=== PATIENT | male | born 1955 | race Caucasian/White ===

== ENCOUNTER 2017-05-13 19:51 | Emergency (ER) | payer BC ==
[~2017-05-13] VITALS: Ht 180.3 cm; Wt 80.0 kg
[2017-05-13 19:55] VITALS: TEMP 36.6; Ht 180.3 cm; Wt 80.0 kg
[2017-05-13] MEDS ORDERED: ASPI81TA28 PO (20:48)
[2017-05-13] MEDS ORDERED: ATOR-54 PO (20:48)
[2017-05-13] MEDS ORDERED: WLLSR/150 PO (20:48)
[2017-05-13] MEDS ORDERED: LSN/10125 PO (20:48)
[2017-05-13 21:48] VITALS: BP 144/79; PULSE 74; O2SAT 99
--- NOTE | 2017-05-14 02:26 | EMERGENCY ROOM VISIT NOTE ---
History Report prepared by Esteribfausto: Karina Leon Under the Supervision of: Dr. Rainer Murray M.D. First contact with patient: 20:14 Chief Complaint: FOOD BOLUS Stated Complaint: FOOD STUCK IN THROAT Nursing Triage Summary: patient reports eating meat that got stuck,patient reports vomiting in triage and states "I think it might of cleared when I vomited,it did the last time I had this" History of Present Illness The patient is a 61 year old male who presents to the Emergency Room with complaints of a food bolus. He was brought to the ED via EMS. 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 His sons called EMS and the patient states he vomited when he got to the ED, which seems to have helped clear some of the bolus. He has been able to take small sips of water after vomiting and states the liquid seems to be going down, but he still has a sensation of something being stuck in his throat and rates his discomfort as a 3/10. The patient reports he did experience a food bolus several years ago. Pt denies LOC, headache, fevers, chills, diaphoresis, visual changes, neck pain, chest pain, breathing difficulties, nausea, vomiting , abdominal pain, back pain, melena, hematochezia, urinary symptoms, numbness, weakness, lymphadenopathy, rash, or other complaints. 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 A total of ten systems were reviewed and were otherwise negative. Past Medical & Surgical Medical Problems: (1) Hyperlipidemia (2) Hypertension Social History Smoking Status: Current Every Day Smoker Alcohol Use: occasionally Drug Use: none Marital Status: Housing Status: lives with family Occupation Status: employed Current/Historical Medications Scheduled Aspirin (Aspirin Ec), 81 MG PO DAILY Atorvastatin (Lipitor), 20 MG PO QPM Bupropion Hcl (Wellbutrin Sr), 150 MG PO BID Hctz/Lisinopril (Lisinopril/Hctz 10/12.5 Mg), 1 TAB PO DAILY Allergies Coded Allergies: No Known Allergies (Unverified , 05/13/17) Physical Exam Vital Signs Date Time Temp Pulse Resp B/P (MAP) Pulse Ox O2 Delivery O2 Flow Rate FiO2 05/13/17 21:48 74 18 144/79 99 05/13/17 19:55 36.6 77 20 174/84 96 Room Air Physical Exam GENERAL: Awake, alert, well-appearing, in no distress HENT: Normocephalic, atraumatic. Oropharynx unremarkable. EYES: Normal conjunctiva. Sclera non-icteric. NECK: Supple. No nuchal rigidity. FROM. No JVD. RESPIRATORY: Clear to auscultation. CARDIAC: Regular rate, normal rhythm. Extremities warm and well perfused. Pulses equal. ABDOMEN: Soft, non-distended. No tenderness to palpation. No rebound or guarding. No masses. RECTAL: Deferred. MUSCULOSKELETAL: Chest examination reveals no tenderness. The back is symmetrical on inspection without obvious abnormality. There is no CVA tenderness to palpation. No joint edema. LOWER EXTREMITIES: Calves are equal size bilaterally and non-tender. No edema. No discoloration. NEURO: Normal sensorium. No sensory or motor deficits noted. SKIN: No rash or jaundice noted. Medical Decision & Procedures ED Course 2019: The patient was evaluated in room B10. A complete history and physical exam was performed. 2129: I reevaluated the patient. His symptoms have completely resolved. I discussed his results and discharge instructions and he verbalized complete understanding and agreement. Medical Decision Medication Reconciliation: I attest that I have personally reviewed the patient' s current medication list Blood pressure screening: Patient was found to have a slightly elevated blood pressure and was referred to their primary doctor for recheck and further treatment. Triage Nursing notes reviewed. The patient's presentation and history were concerning for possible food impaction. Differential includes esophageal food impaction, esophageal stricture, esophageal spasm, as well as others. Patient was evaluated. He had symptoms consistent with an esophageal food impaction. He noted vomiting just after arrival here and having the sensation that his problem cleared. The patient was tolerating his saliva. He took several sips of water and did well with this. He was given a carbonated beverage and observed. He had complete resolution of symptoms. The patient had no recurrence of discomfort or vomiting. He was able to swallow without difficulty. I suspect that he had an esophageal food impaction that has passed. He has had the need for esophageal dilation in the past. He has not seen a local [facility]. The patient was given information for [facility]. He will need to follow-up. If he developed any worsening problems he will come back to the emergency department for reevaluation. By the evaluation outlined above other emergent etiologies such as those listed in the differential, as well as others, were deemed relatively unlikely. The patient was educated about the findings as listed above. All questions were answered and the patient was pleased with the treatment. Return instructions were outlined and the patient was discharged in stable condition. The patient was referred to gastroenterology and his PCP for follow-up for a recheck of the current condition Impression Primary Impression: Food impaction of esophagus Scribe Attestation The scribe's documentation has been prepared under my direction and personally reviewed by me in its entirety. I confirm that the note above accurately reflects all work, treatment, procedures, and medical decision making performed by me. Departure Information Dispostion Home / Self-Care Referrals No Doctor, Assigned (PCP) Patient Instructions My [facility] Additional Instructions Rest and drink plenty of fluids as tolerated. Continue current medications. Avoid strenuous activities and anything that worsens your pain. Resume normal activities once your symptoms resolve. Return to the ER immediately for worsening or persistent chest pain, abdominal pain, vomiting, fevers, chest pains, difficulty breathing, worsening of your condition, or as needed. Follow up with your primary physician for a recheck of your current condition. Follow-up with gastroenterology as discussed. The number is listed below under Dr. hollingsworth.
== END 2017-05-13 21:52 | disposition home or self-care (01) ==
LOC: C.EDB 19:56
DX: T18.128A Food in esophagus causing other injury, initial encounter (principal); X58.XXXA Exposure to other specified factors, initial encounter; Y92.89 Other specified places as the place of occurrence of the external cause; E78.5 Hyperlipidemia, unspecified; I10 Essential (primary) hypertension; F17.210 Nicotine dependence, cigarettes, uncomplicated; Z79.82 Long term (current) use of aspirin; Z79.899 Other long term (current) drug therapy

== ENCOUNTER 2020-09-01 08:40 | Inpatient (IN) ==
[2020-09-01] MEDS ORDERED: MECLIZINE HCL 25 MG TAB PO STA (08:56)
[2020-09-01] MEDS ORDERED: ONDANSETRON INJ 2 MG/ML 2 ML VIAL IV STA (08:56)
[2020-09-01] MEDS ORDERED: SODIUM CHLORIDE 0.9% 1000ML 1,000 ML IV ONE (08:58)
[2020-09-01] MEDS ORDERED: OPTIRAY 320 125ml IV ONE (09:00)
[2020-09-01] MEDS ORDERED: LABETALOL HCL IV 5 MG/ML 20ML IV ONE ×2 (09:05→09:30)
[2020-09-01] MEDS ORDERED: MAGNESIUM SULFATE 1GM / D5W BAG IV ONE (09:22)
[2020-09-01] MEDS ORDERED: MAGNESIUM SULFATE / D5W 1 GM/100 ML BAG IV STA ×2 (09:24→09:55)
--- NOTE | 2020-09-01 09:34 | CT Scan Report ---
UNENHANCED CT OF THE BRAIN; CT ANGIOGRAM OF THE BRAIN; CT ANGIOGRAM OF THE NECK CLINICAL HISTORY: Strokelike symptoms. COMPARISON STUDY: No priors. TECHNIQUE: Unenhanced axial CT scan of the brain is performed. Subsequently, following the IV adminis tration of 120 of Opt[address]ay 320, CT angiogram of the head and neck was performed from the aortic arch t o the vertex. Images are reviewed in the axial, sagittal, and coronal planes. 3-D MIPS images are cre ated and assessed. IV contrast was administered without complication. All measurements were calculate d based on NASCET criteria. A dose lowering technique was utilized adhering to the principles of ALA RA. CT DOSE: 1238.98 mGy.cm FINDINGS: Brain parenchyma: There is age-related involutional change noting mild subcortical and periventricula r microangiopathic disease. There is no hemorrhage, mass effect, or evidence of acute territorial isc hemia by CT criteria. There is no evidence of enhancing mass lesion on the angiogram phase images. Th e ventricles, sulci, and cisterns are prominent secondary to involutional change. Dc-white matter d ifferentiation is preserved. Mineralization is noted in the basal ganglia. No extra-axial fluid colle ction is seen. Thoracic aorta: Visualized portions of the thoracic aorta are normal in caliber. The aortic arch demo nstrates bovine variant anatomy. Right carotid arterial system: The right common carotid artery is widely patent, as are the right int ernal and external carotid arteries. Left carotid arterial system: The left common carotid artery is widely patent, as are the left administration intern al and external carotid arteries. Calcified plaque is noted in the carotid bulb. There is tortuosity of the distal internal carotid artery. Vertebral arteries: The vertebral arteries are widely patent and codominant. Subclavian arteries: Widely patent bilaterally. Intracranial vasculature: There is atherosclerotic calcification of the cavernous carotid arteries. T here is origin of the left posterior cerebral artery. A small posterior to indicating artery is seen on the right. The internal carotid arteries are patent at the skull base, as are the anterior a nd middle cerebral arteries bilaterally. The vertebrobasilar system and posterior cerebral arteries a re widely patent. The vertebral arteries are codominant. There is no aneurysm, high-grade stenosis, o r focal vessel cut off seen throughout the intracranial circulation. Jugular veins: Patent bilaterally. Dural sinuses: Patent. Lung apices: Partially visualized upper lobe lung parenchyma appears clear. Soft tissues: The visualized pharyngeal soft tissues are normal in appearance noting angiographic pha se technique. The oropharyngeal airway appears widely patent. The salivary and thyroid glands are nor mal in appearance. No cervical lymphadenopathy is seen. Skeletal structures: The calvarium appears intact. The cervical spine is within normal limits. No lyt ic or blastic lesion is seen. Orbits: The bony orbits are intact. Orbital contents are normal as imaged. Sinuses and mastoids: There is mild mucosal thickening in the right frontal sinus. A 10 mm retention cyst is seen in the right maxillary sinus. Trace mucosal thickening is noted in the left maxillary si nus. The mastoid air cells are well pneumatized. IMPRESSION: 1. There is no hemorrhage, mass effect, or evidence of acute territorial ischemia by CT criteria. 2. Unremarkable CT angiogram of the brain. 3. Unremarkable CT angiogram of the neck. ACT 112: Negative or not required by law. Electronically signed by: Darren Tejada M.D. 09/01/2020 9:33 AM
[2020-09-01 09:44] LABS: Basophils # (auto) 0.01 K/uL (0-0.2); Basophils % (auto) 0.1 %; Eosinophils # (auto) 0.13 K/uL (0-0.5); Eosinophils % (auto) 1.3 %; Hematocrit (blood only) 43.9 % (42-52); Hemoglobin 14.7 g/dL (14.0-18.0); Immature Granulocytes # (auto) 0.03 K/uL (0.00-0.02); Immature Granulocytes % (auto) 0.3 %; Lymphocytes % (auto) 9.9 %; Mean Corpuscular Hgb Conc 33.5 g/dL (32-36); Mean Corpuscular Volume 92.6 fL (80-100); Mean Platelet Volume 9.6 fL (7.4-10.4); Monocytes # (auto) 0.51 K/uL (0.11-0.59); Neutrophils # (auto) 8.46 K/uL (1.4-6.5); Neutrophils % (auto) 83.4 %; Platelet Count 243 K/uL (130-400); Red Blood Count 4.74 M/uL (4.7-6.1); White Blood Count 10.14 K/uL (4.8-10.8)
[2020-09-01 09:48] LABS: iSTAT Creatinine 0.9 mg/dl (0.6-1.3); iSTAT Ionized Calcium 1.17 mmol/l (1.12-1.32)
[2020-09-01] MEDS ORDERED: ASPIRIN CHEW 324 MG PO STA (09:55)
[2020-09-01 10:02] LABS: Alanine Aminotransferase 38 U/L (12-78); Albumin Level 3.3 gm/dl (3.4-5.0); Aspartate Aminotransferase 16 U/L (15-37); BUN Creatinine Ratio 12.2 (10-20); Blood Urea Nitrogen 12 mg/dl (7-18); Calcium 8.3 mg/dl (8.5-10.1); Carbon Dioxide 27 mmol/L (21-32); Chloride 107 mmol/L (98-107); Creatinine Clr Calc Pharmacy 74.6 ml/min; Est GFR (Non-African American) 76.8; Glucose 126 mg/dl (70-99); Magnesium 2.1 mg/dl (1.8-2.4); Potassium 3.9 mmol/L (3.5-5.1); Sodium 138 mmol/L (136-145)
[2020-09-01 10:05] LABS: Partial Thromboplastin Ratio 0.9; Partial Thromboplastin Time 24.4 Seconds (21.0-31.0); Prothrombin Time 10.4 Seconds (9.0-12.0)
[2020-09-01 10:07] LABS: Alkaline Phosphatase 124 U/L (45-117); Bilirubin,Total 0.3 mg/dl (0.2-1); Creatine Kinase MB 1.6 ng/ml (0.5-3.6); Globulin 3.4 gm/dl (2.5-4.0); Total Protein 6.7 gm/dl (6.4-8.2); Troponin I < 0.015 ng/ml (0-0.045)
--- NOTE | 2020-09-01 10:07 | XRay Report ---
SINGLE VIEW CHEST CLINICAL HISTORY: Dizziness. FINDINGS: An AP, portable, upright chest radiograph is obtained. No prior studies are available for c omparison at the time of dictation. The heart is top normal for projection. The pulmonary vasculatur e is noncongested. The lungs and pleural spaces are clear. No pneumothorax is seen. The bony thorax i s grossly intact. IMPRESSION: No active disease in the chest. ACT 112: Negative or not required by law. Electronically signed by: Darren Tejada M.D. 09/01/2020 10:05 AM
--- NOTE | 2020-09-01 10:44 | Magnetic Resonance Report ---
MR brain wo con HISTORY: 64 years-old Male Pt c/o severe dizziness acute dizziness. COMPARISON: Head CT, CTA head neck of same day TECHNIQUE: Multiplanar multisequence MRI of the brain was obtained without the use of IV contrast. FINDINGS: No restricted diffusion to suggest acute or subacute infarct. Midline structures including the corpus callosum, brainstem, optic chiasm, pituitary and pineal glands appear unremarkable the sagittal T1 s eries. There is no cerebellar tonsillar herniation. Degenerative changes of the imaged cervical spine . Mild age-related involutional changes. Mild to moderate patchy T2/FLAIR hyperintensities throughout the white matter of the cerebral hemispheres. No acute intracranial hemorrhage, midline shift, abnor mal extra axial collection, hydrocephalus or intracranial mass. The cerebral venous sinuses and major arterial flow voids at the level of the skull base appear patent. Mild polypoid mucosal thickening o f the right maxillary sinus. Skull, orbits and soft tissues are unremarkable. IMPRESSION: 1. No acute intracranial abnormality, specifically there is no evidence of acute or subacute infarct. 2. Age-related involutional changes with mild to moderate chronic microvascular ischemic disease. ACT 112: Negative or not required by law. The above report was generated using voice recognition software. It may contain grammatical, syntax o r spelling errors. Electronically signed by: Rodrigo Valdez M.D. 09/01/2020 10:43 AM
--- NOTE | 2020-09-01 11:33 | Electrocardiogram Report ---
Test Reason : Blood Pressure : / mmHG Vent. Rate : 064 BPM Atrial Rate : 064 BPM P-R Int : 160 ms QRS Dur : 104 ms QT Int : 430 ms P-R-T Axes : 034 055 053 degrees QTc Int : 443 ms Normal sinus rhythm Normal ECG No previous ECGs available Confirmed by Km Chaidez ([id number]) on 09/01/2020 11:33:40 AM Referred By: REFERRED SELF Confirmed By:Km Chaidez
[2020-09-01] MEDS: niCARdipine 25 MG in SODIUM CHLORIDE 0.9% 240 ML IV SCH ×2 (12:00→18:02)
[2020-09-01] MEDS ORDERED: POLYETHYLENE (MIRALAX) 17 GM PACK PO PRN (12:04)
[2020-09-01] MEDS ORDERED: ACETAMINOPHEN 325 MG TAB PO PRN (12:04)
--- NOTE | 2020-09-01 12:10 | History & Physical Report ---
Date of Service September 01, 2020 Assessment & Plan (1) Hypertension: Hypertensive urgency history of hypertension currently, blood pressure BP quite elevated, patient symptomatic, dizzy Received labetalol 10 mg IV in the ED without much improvement Patient started on nicardipine drip after blood pressure 197/100 CT head negative, CT a head and neck unremarkable, MRI does not show any acute intracranial abnormality, specifically there is no evidence of acute or subacute infarct. Age-related mild to moderate chronic microvascular ischemic disease. In the past patient was on lisinopril/HCTZ, , patient stopped medication on his own, then followed up with his PCP and his blood pressure was at goal therefore blood pressure medication was not restarted, currently not on any blood pressure medications Plan to start on his prior medication, oral lisinopril/HCTZ Currently patient is on nicardipine drip, and will need to be monitored in ICU Patient received aspirin 324 mg in the ED, will continue aspirin 81 mg daily (pt was previously on aspirin, says that he stopped it sometime ago) Echocardiogram ordered, patient should be monitored on telemetry in case there is other cause for his dizziness Patient also reported urinary frequency, this could be age-related BPH, but there is also possibility of UTI Will obtain UA urine culture Denies any fevers or chills, WBC not elevated (2) Hyperlipidemia: Continue home lipitor (3) Depression: Continue home Wellbutrin (4) Tobacco use: Counseled about tobacco use cessation Currently smokes about 1 small cigar a day, he also reports daily marijuana smoking Nicotine patch ordered DVT ppx: SCDs Code: Full History of Present Illness Chief Complaint: Dizziness Primary Care Provider: Jesus Neil MD Patient is a 64-year-old male, with history of hypertension, hyperlipidemia, erectile dysfunction, depression, who presents today due to dizziness. Patient states that he was at work, moving boxes which were quite heavy, working currently at [employer], and became very dizzy. He went to men's room, and felt very nauseous, dry heaving. He then presented to emergency room for further evaluation. Emergency room EKG showed normal sinus rhythm. He also received 10 mg of labetalol IV. He also received aspirin 324 mg. Chest x-ray was unremarkable, CT head was obtained and was negative. CTA head and neck unremarkable. MRI was also obtained to rule out stroke or any other intracranial abnormality, and did not show any acute intracranial abnormality, specifically no evidence of acute or subacute infarct. It did show age-related mild to moderate chronic microvascular ischemic disease. Blood pressure continued to be elevated, 197/100, patient was started on nicardipine drip in the ED. Pt otherwise denies any fevers, chills, chest pain, shortness of breath, currently denies any abdominal pain as he does not feel nauseous anymore. He still feels dizzy though. Denies any sick contacts, any new rash or swelling. Pt denies any diarrhea, however he states that his urination is more frequent. He smokes small cigars a day, and only rarely drinks alcohol. He reports marijuana use/smoking daily. In the past, he was on lisinopril/HCTZ . He then stopped his medications and went to see his primary care doctor. At that time his blood pressure was at goal and therefore it was decided not to start him on any blood pressure medications. Allergies Allergy/AdvReac Type Severity Reaction Status Date / Time No Known Allergies Allergy Unverified 09/01/20 10:16 Home Medications Home Medications Medication Instructions Recorded Confirmed Type atorvastatin 20 mg PO DAILY 09/01/20 09/01/20 History bupropion HCl 150 mg PO BID 09/01/20 09/01/20 History melatonin 3 mg PO HS PRN 09/01/20 09/01/20 History Past Med/Surg History Medical History Depression Erectile dysfunction Normal colonoscopy Tobacco use Family History (Updated 09/01/20 @ 12:16 by Bobby Zamora MD) Brother Diabetes Mother Cancer cervical Father Heart disease hx of [place] Social History Smoking Status: Current some day smoker Tobacco Type: Cigars Feels Safe at Home: Yes Review of Systems Review of Systems: All systems reviewed & are unremarkable except as noted in HPI & below Constitutional: no fever and no chills Eyes: no problem reported Ear, Nose, Mouth, Throat: no problem reported Respiratory: no cough and no dyspnea Cardiovascular: no chest pain, no palpitations and no edema Gastrointestinal: + nausea (now resolved) and + vomiting (now resolved); no abdominal pain Genitourinary: + urinary urgency Musculoskeletal: no problem reported Integumentary: no problem reported Neurologic: + dizziness Psychiatric: no problem reported Endocrine: no problem reported Hematologic / Lymphatic: no problem reported Allergy / Immunological: no problem reported Physical Exam Physical Exam: Elderly male, lying in bed, in no acute distress Constitutional: WD/WN, vitals as above Eyes: PERRL, conjunctivae normal, anicteric sclerae EOM intact bilaterally ENMT: external ear and nose normal, oropharynx normal Neck: trachea midline, no thyromegaly Respiratory: normal respiratory effort, lungs clear to auscultation Auscultation: no crackles, no rhonchi and no wheezes Cardiovascular: RRR, no murmur, no edema Chest (Breasts): Chest: normal inspection of chest Gastrointestinal (Abdomen): Inspection/Auscultation: abdomen normal to inspection and normal bowel sounds; abdomen not distended Percussion/Palpation: abdomen soft; abdomen nontender, no guarding and abdomen not rigid Musculoskeletal: no cyanosis or clubbing, extremities motor strength 5/5 Head/Neck/Chest: normocephalic and head atraumatic Skin: no rashes, warm and dry Neurologic: PERRL, EOMI, accommodation nl, no face palsy, no dysarthria moves all extremities Speech / Cognition: normal speech Motor/Sensory: no tremor Psychiatric: A+Ox3, euthymic affect Speech: normal rate/rhythm/volume of speech Genitourinary: no CVA tenderness Lymphatic: no lymphadenopathy Results & Data Results & Data ([facility]) Vital Signs (Past 12 Hours) Vital Signs Temp Pulse Resp BP Pulse Ox 09/01/20 12:00 63 13 09/01/20 11:58 67 13 159/111 H 09/01/20 11:45 61 17 09/01/20 11:30 65 14 09/01/20 11:15 65 23 09/01/20 11:06 63 14 09/01/20 11:05 64 14 197/101 H 99 09/01/20 09:50 60 189/100 H 99 09/01/20 09:45 62 178/97 H 99 09/01/20 09:40 66 09/01/20 09:35 61 185/98 H 99 09/01/20 09:31 60 174/91 H 100 09/01/20 09:30 62 98 09/01/20 09:24 59 L 189/88 H 96 09/01/20 09:20 62 98 09/01/20 08:58 98 09/01/20 08:40 36.5 C 93 H 18 187/104 H 95 Laboratory Results 09/01/20 09/01/20 09/01/20 Range/Units 09:37 09:32 09:32 WBC (4.8-10.8) K/uL RBC (4.7-6.1) M/uL Hgb (14.0-18.0) g/dL POC Hgb 15.0 (14.0-18.0) g/dl Hct (42-52) % POC Hct 44 (42-52) % MCV (80-100) fL MCH (25-34) pg MCHC (32-36) g/dL RDW Std Deviation (36.4-46.3) fL RDW Coeff of Christopher (11.5-14.5) % Plt Count (130-400) K/uL MPV (7.4-10.4) fL Immature Gran % (Auto) % Neut % (Auto) % Lymph % (Auto) % Huntington % (Auto) % Eos % (Auto) % Baso % (Auto) % Neut # (Auto) (1.4-6.5) K/uL Lymph # (Auto) (1.2-3.4) K/uL Huntington # (Auto) (0.11-0.59) K/uL Eos # (Auto) (0-0.5) K/uL Baso # (Auto) (0-0.2) K/uL Immature Gran # (Auto) (0.00-0.02) K/uL PT 10.4 (9.0-12.0) Seconds INR 1.0 (0.9-1.1) APTT 24.4 (21.0-31.0) Seconds PTT Ratio 0.9 POC Sodium 139 (135-144) mmol/L Sodium 138 (136-145) mmol/L POC Potassium 4.0 (3.3-5.0) mmol/L Potassium 3.9 (3.5-5.1) mmol/L POC Chloride 103 (101-112) mmol/L Chloride 107 (98-107) mmol/L Carbon Dioxide 27 (21-32) mmol/L POC Total CO2 25 (24-31) mmol/L Anion Gap 4.0 (3-11) POC Anion Gap 16.0 (16-25) mmol/L POC BUN 13 (7-18) mg/dl BUN 12 (7-18) mg/dl Creatinine 1.02 (0.6-1.4) mg/dl POC Creatinine 0.9 (0.6-1.3) mg/dl Est Cr Clr Drug Dosing 74.6 ml/min Est GFR ( Amer) 89.0 Est GFR (Non-Af Amer) 76.8 BUN/Creatinine Ratio 12.2 (10-20) Glucose 126 H (70-99) mg/dl POC Glucose (70-99) mg/dl POC Glucose (other) 124 H (70-99) mg/dl Calcium 8.3 L (8.5-10.1) mg/dl POC Ioniz Calcium Brandon 1.17 (1.12-1.32) mmol/l Magnesium 2.1 (1.8-2.4) mg/dl Total Bilirubin 0.3 (0.2-1) mg/dl AST 16 (15-37) U/L ALT 38 (12-78) U/L Alkaline Phosphatase 124 H (45-117) U/L CK-MB (CK-2) 1.6 (0.5-3.6) ng/ml Troponin I < 0.015 (0-0.045) ng/ml Total Protein 6.7 (6.4-8.2) gm/dl Albumin 3.3 L (3.4-5.0) gm/dl Globulin 3.4 (2.5-4.0) gm/dl Albumin/Globulin Ratio 1.0 (0.9-2) 09/01/20 09/01/20 Range/Units 09:32 09:13 WBC 10.14 (4.8-10.8) K/uL RBC 4.74 (4.7-6.1) M/uL Hgb 14.7 (14.0-18.0) g/dL POC Hgb (14.0-18.0) g/dl Hct 43.9 (42-52) % POC Hct (42-52) % MCV 92.6 (80-100) fL MCH 31.0 (25-34) pg MCHC 33.5 (32-36) g/dL RDW Std Deviation 44.0 (36.4-46.3) fL RDW Coeff of Christopher 13.0 (11.5-14.5) % Plt Count 243 (130-400) K/uL MPV 9.6 (7.4-10.4) fL Immature Gran % (Auto) 0.3 % Neut % (Auto) 83.4 % Lymph % (Auto) 9.9 % Huntington % (Auto) 5.0 % Eos % (Auto) 1.3 % Baso % (Auto) 0.1 % Neut # (Auto) 8.46 H (1.4-6.5) K/uL Lymph # (Auto) 1.00 L (1.2-3.4) K/uL Huntington # (Auto) 0.51 (0.11-0.59) K/uL Eos # (Auto) 0.13 (0-0.5) K/uL Baso # (Auto) 0.01 (0-0.2) K/uL Immature Gran # (Auto) 0.03 H (0.00-0.02) K/uL PT (9.0-12.0) Seconds INR (0.9-1.1) APTT (21.0-31.0) Seconds PTT Ratio POC Sodium (135-144) mmol/L Sodium (136-145) mmol/L POC Potassium (3.3-5.0) mmol/L Potassium (3.5-5.1) mmol/L POC Chloride (101-112) mmol/L Chloride (98-107) mmol/L Carbon Dioxide (21-32) mmol/L POC Total CO2 (24-31) mmol/L Anion Gap (3-11) POC Anion Gap (16-25) mmol/L POC BUN (7-18) mg/dl BUN (7-18) mg/dl Creatinine (0.6-1.4) mg/dl POC Creatinine (0.6-1.3) mg/dl Est Cr Clr Drug Dosing ml/min Est GFR ( Amer) Est GFR (Non-Af Amer) BUN/Creatinine Ratio (10-20) Glucose (70-99) mg/dl POC Glucose 143 H (70-99) mg/dl POC Glucose (other) (70-99) mg/dl Calcium (8.5-10.1) mg/dl POC Ioniz Calcium Brandon (1.12-1.32) mmol/l Magnesium (1.8-2.4) mg/dl Total Bilirubin (0.2-1) mg/dl AST (15-37) U/L ALT (12-78) U/L Alkaline Phosphatase (45-117) U/L CK-MB (CK-2) (0.5-3.6) ng/ml Troponin I (0-0.045) ng/ml Total Protein (6.4-8.2) gm/dl Albumin (3.4-5.0) gm/dl Globulin (2.5-4.0) gm/dl Albumin/Globulin Ratio (0.9-2) Medications Administered Current Inpatient Medications Acetaminophen (Acetaminophen 325 Mg Tab) 650 mg PO Q4H PRN PRN Reason: Pain or Fever Stop: 10/01/20 12:03 Nicardipine HCl 25 mg/ Sodium (Chloride) 250 mls @ 50 mls/hr IV .Q5H KEITH; Protocol Stop: 10/01/20 11:14 Polyethylene Glycol (Polyethylene (Miralax) 17 Gm Pack) 17 gm PO DAILY PRN PRN Reason: Constipation Stop: 10/01/20 12:03 Code Status & VTE Plan VTE Prophylaxis Plan VTE Prophylaxis will be ordered: Yes
[2020-09-01] MEDS ORDERED: LISINOPRIL/HCTZ 10/12.5MG TAB PO SCH (12:30)
[2020-09-01 13:05] LABS: Appearance Urine Clear (Clear); Bilirubin Urine Negative (Negative); Blood Urine Negative (Negative); Color Urine Yellow; Glucose Urine UA Negative (Negative); Ketones Urine Negative (Negative); Leukocyte Esterase Urine Negative (Negative); Nitrite Urine Negative (Negative); Protein Urine Negative (Negative); Specific Gravity Urine 1.018 (1.000-1.030); Urobilinogen Urine Negative (Negative); pH Urine 7.5 (4.5-7.5)
--- NOTE | 2020-09-01 15:18 | Critical Care Consultation ---
Date of Consultation September 01, 2020 Assessment & Plan (1) Hypertensive urgency: Patient was on a minimal dose of nicardipine drip. We have weaned the nicardipine drip off. He received 10 mg of lisinopril and 12.5 mg of hydrochlorothiazide. His blood pressure is currently 146/81. He is asymptomatic at present. He had an MRI of his brain which demonstrated no acute intracranial abnormality. Age-related mild to moderate chronic microvascular ischemic disease noted. The CT of the head and neck were unremarkable. Chest x-ray with no significant findings. Laboratory data was unremarkable. Urinalysis with no abnormalities. Glucose was 124. Hypertension and dizziness may be related to Mnire's disease. He also noted that his symptoms began possibly roughly 3 months ago around the time he started bupropion. No significant neurological abnormalities noted on exam or on imaging. He may need a cardiac work-up as an outpatient. We will continue to monitor in the ICU for today. Downgrade likely tomorrow. (2) Tinnitus: (3) Tobacco use: (4) Dizziness: History of Present Illness Reason for Consultation: Hypertensive urgency Requesting Physician: Hospitalist service Attending Physician: Bobby Zamora MD History of Present Illness 64-year-old male with a past medical history of tobacco abuse, marijuana abuse, hypertension and depression who presents to the hospital due to dizziness earlier today. Patient works at the [employer] and notes that he was lifting heavy boxes and subsequently felt very dizzy and threw up several times. He actually threw up red contents and then recalled that he ate strawberries for breakfast. He denies any further nausea. He does endorse chronic tinnitus. He notes that he was previously on blood pressure medications but has not taken anything for very long period of time. He does notice intermittent dizziness. The only new medication that he was on his bupropion 150 mg twice daily. He notes that he started this medication roughly 3 months ago. He feels that his symptoms may also have started around that same time. He denies any chest pain. He did have a cough roughly 2 days ago, but this resolved. He denies any fevers or chills. He does smoke a cigar occasionally. He notes that he smoked cigarettes for 40 years and quit roughly 2 to 3 years ago. He smokes marijuana daily at night. He has been doing this since age of 17. 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 He grew up in [place] and moved to [place]. Allergies Allergy/AdvReac Type Severity Reaction Status Date / Time No Known Allergies Allergy Unverified 09/01/20 10:16 Home Medications Home Medications Medication Instructions Recorded Confirmed Type atorvastatin 20 mg PO DAILY 09/01/20 09/01/20 History bupropion HCl 150 mg PO BID 09/01/20 09/01/20 History melatonin 3 mg PO HS PRN 09/01/20 09/01/20 History Patient History Medical History Depression Erectile dysfunction Normal colonoscopy Tobacco use Family History Brother Diabetes Mother Cancer cervical Father Heart disease hx of CA Social History Smoking Status: Current some day smoker Tobacco Type: Cigars Feels Safe at Home: Yes Review of Systems Review of Systems: All systems reviewed & are unremarkable except as noted in HPI & below Physical Exam Constitutional: WD/WN, vitals as above Eyes: PERRL, conjunctivae normal, anicteric sclerae ENMT: external ear and nose normal, oropharynx normal Neck: normal visual inspection Respiratory: normal respiratory effort, lungs clear to auscultation Cardiovascular: RRR, no murmur, no edema Gastrointestinal (Abdomen): normal bowel sounds, soft, nontender, no hepatosplenomegaly Musculoskeletal: no cyanosis or clubbing, extremities motor strength 5/5 Skin: no rashes, warm and dry Neurologic: PERRL, EOMI, accommodation nl, no face palsy, no dysarthria Psychiatric: A+Ox3, euthymic affect Results & Data Results & Data ([facility]) Vital Signs (Past 12 Hours) Vital Signs Temp Pulse Resp BP Pulse Ox 09/01/20 15:00 71 22 98 09/01/20 14:45 65 23 98 09/01/20 14:36 67 21 146/81 H 98 09/01/20 14:21 67 15 162/94 H 100 09/01/20 14:14 98.1 F 09/01/20 14:06 71 24 153/84 H 99 09/01/20 13:51 68 14 145/69 H 99 09/01/20 13:33 16 156/76 H 99 09/01/20 13:00 72 16 136/75 97 09/01/20 12:58 72 20 133/79 99 09/01/20 12:50 76 18 142/86 H 95 09/01/20 12:30 83 15 135/92 95 09/01/20 12:15 72 18 146/76 H 95 09/01/20 12:01 63 15 185/95 H 95 09/01/20 12:00 63 13 09/01/20 11:58 67 13 159/111 H 09/01/20 11:45 61 17 09/01/20 11:30 65 14 09/01/20 11:15 65 23 09/01/20 11:06 63 14 09/01/20 11:05 64 14 197/101 H 99 09/01/20 09:50 60 189/100 H 99 09/01/20 09:45 62 178/97 H 99 09/01/20 09:40 66 09/01/20 09:35 61 185/98 H 99 09/01/20 09:31 60 174/91 H 100 09/01/20 09:30 62 98 09/01/20 09:24 59 L 189/88 H 96 09/01/20 09:20 62 98 09/01/20 08:58 98 09/01/20 08:40 97.7 F 93 H 18 187/104 H 95 I reviewed the vital signs, labs and imaging Coding Level of Care Code 46737 Inpt Consult Level 5 Diagnoses Hypertensive urgency I16.0 Tinnitus H93.19 Tobacco use Z72.0 Dizziness R42
[2020-09-01] MEDS: NICOTINE 7 MG/24 HR TDSY TD SCH (16:10)
--- NOTE | 2020-09-01 16:12 | XCELERA ---
[id number]
[2020-09-01] MEDS: buPROPion SR 150 MG TABCR PO SCH (20:35)
[2020-09-02 04:56] LABS: Hematocrit (blood only) 43.1 % (42-52); Mean Corpuscular Hemoglobin 30.6 pg (25-34); Mean Corpuscular Hgb Conc 32.5 g/dL (32-36); Mean Corpuscular Volume 94.1 fL (80-100); Mean Platelet Volume 9.6 fL (7.4-10.4); Platelet Count 298 K/uL (130-400); RDW Coefficient of Variation 13.4 % (11.5-14.5); RDW Standard Deviation 45.8 fL (36.4-46.3); Red Blood Count 4.58 M/uL (4.7-6.1); White Blood Count 9.82 K/uL (4.8-10.8)
[2020-09-02 05:15] LABS: Calcium 8.5 mg/dl (8.5-10.1); Creatinine Clr Calc Pharmacy 67.9 ml/min; Est GFR (African American) 79.5; Est GFR (Non-African American) 68.6; Magnesium 2.4 mg/dl (1.8-2.4); Phosphorus 3.1 mg/dl (2.5-4.9); Potassium 3.7 mmol/L (3.5-5.1)
[2020-09-02] MEDS ORDERED: POTASSIUM CHLORIDE 20 MEQ TABCR PO STA (05:48)
--- NOTE | 2020-09-02 07:46 | Critical Care Progress Note ---
Date of Service September 02, 2020 Assessment & Plan (1) Hypertensive urgency: Patient has not required the nicardipine drip since his arrival to the ICU. He is doing quite well. I increased his lisinopril to 20 mg. He is also on 12.5 mg of HCTZ. He will need to reestablish care with his primary care doctor and be seen within 5 days. He also has complaints of tinnitus which will need follow-up with his primary care. Brain imaging has been unremarkable. I think he is safe to go home from the ICU if he has no symptoms after ambulating. (2) Tinnitus: (3) Tobacco use: (4) Dizziness: Admission and Anticipated Discharge Date Admission Date: September 01, 2020 Subjective Denies any nausea, vomiting or shortness of breath. He is eating his breakfast. He did not ambulate since yesterday. Review of Systems Review of Systems: All systems reviewed & are unremarkable except as noted in HPI & below Physical Exam Constitutional: WD/WN, vitals as above Eyes: PERRL, conjunctivae normal, anicteric sclerae ENMT: external ear and nose normal, oropharynx normal Neck: normal visual inspection Respiratory: normal respiratory effort, lungs clear to auscultation Cardiovascular: RRR, no murmur, no edema Gastrointestinal (Abdomen): normal bowel sounds, soft, nontender, no hepatosplenomegaly Musculoskeletal: no cyanosis or clubbing, extremities motor strength 5/5 Skin: no rashes, warm and dry Neurologic: PERRL, EOMI, accommodation nl, no face palsy, no dysarthria Psychiatric: A+Ox3, euthymic affect Results & Data Results & Data ([facility]) Vital Signs (Past 12 Hours) Vital Signs Temp Pulse Resp BP Pulse Ox 09/02/20 07:09 67 19 161/94 H 97 09/02/20 06:09 62 7 L 119/85 97 09/02/20 05:08 67 10 L 140/68 96 09/02/20 04:09 62 16 142/65 H 96 09/02/20 03:08 64 12 144/77 H 95 09/02/20 02:09 61 0 L 129/62 96 09/02/20 01:08 66 15 139/83 96 09/02/20 00:00 69 09/01/20 20:08 69 12 136/68 95 09/01/20 20:00 98.1 F I reviewed the labs, vital signs and imaging Coding Level of Care Code 60262 Subseq Hosp Care Lvl 2 Diagnoses Hypertensive urgency I16.0 Tinnitus H93.19 Tobacco use Z72.0 Dizziness R42
[2020-09-02] MEDS: buPROPion SR 150 MG TABCR PO SCH (08:33)
[2020-09-02] MEDS: NICOTINE 7 MG/24 HR TDSY TD SCH (08:33)
--- NOTE | 2020-09-02 08:58 | Hospitalist Progress Note ---
Date of Service September 02, 2020 Assessment & Plan (1) Hypertension: Hypertensive urgency history of hypertension currently, blood pressure BP quite elevated, patient symptomatic, dizzy, previously also nauseous and dry heaving Received labetalol 10 mg IV in the ED without much improvement Patient started on nicardipine drip after blood pressure 197/100 CT head negative, CTA head and neck unremarkable, MRI does not show any acute intracranial abnormality, specifically there is no evidence of acute or subacute infarct. Age-related mild to moderate chronic microvascular ischemic disease. In the past patient was on lisinopril/HCTZ, , patient stopped medication on his own, then followed up with his PCP and his blood pressure was at goal therefore blood pressure medication was not restarted, currently not on any blood pressure medications Started on oral lisinopril/HCTZ Patient on nicardipine drip from ED, needed to be monitored in ICU for titration Patient received aspirin 324 mg in the ED, will continue aspirin 81 mg daily (pt was previously on aspirin, says that he stopped it sometime ago) Echocardiogram ordered, patient should be monitored on telemetry in case there is other cause for his dizziness Telemetry reviewed overnight, patient has been in normal sinus rhythm, echocardiogram unremarkable This morning, September 02, patient feels much better, he is inquiring about going home, denies any dizziness Blood pressure much better controlled now Patient will be discharged on lisinopril/HCTZ, Pt also reported history of tinnitus, may need further outpatient evaluation by ENT, possible Menier's dis. Follow-up with PCP requested Patient also reported urinary frequency, this could be age-related BPH, but there is also possibility of UTI Will obtain UA urine culture, UA negative Denies any fevers or chills, WBC not elevated (2) Hyperlipidemia: Continue home lipitor (3) Depression: Continue home Wellbutrin (4) Tobacco use: Counseled about tobacco use cessation Currently smokes about 1 small cigar a day, he also reports daily marijuana smoking Nicotine patch ordered DVT ppx: SCDs Code: Full Admission and Anticipated Discharge Date Admission Date: September 01, 2020 Subjective Patient is lying in bed, no acute events overnight. Denies currently any fevers, chills, chest pain, shortness of breath, dizziness, abdominal pain, nausea or vomiting. He was not ambulating overnight, then ambulated in the morning and reported little bit of dizziness. However he states not significant. Ambulated again later in the day, and felt well. Blood pressure is now well controlled. Patient wants to go home. Says that he has a son, if he would need any help, however he does not feel that he would need any help. Monitor reviewed, patient has been in normal sinus rhythm. Echocardiogram reviewed, unremarkable. Review of Systems Review of Systems: All systems reviewed & are unremarkable except as noted in HPI & below Constitutional: no fever and no chills Respiratory: no cough and no dyspnea Cardiovascular: no chest pain and no palpitations Gastrointestinal: no abdominal pain, no nausea and no vomiting Physical Exam Physical Exam: Elderly male, lying in bed, in no acute distress Constitutional: WD/WN, vitals as above Eyes: PERRL, conjunctivae normal, anicteric sclerae EOM intact bilaterally ENMT: external ear and nose normal, oropharynx normal Neck: trachea midline, no thyromegaly Respiratory: normal respiratory effort, lungs clear to auscultation Auscultation: no crackles, no rhonchi and no wheezes Cardiovascular: RRR, no murmur, no edema Chest (Breasts): Chest: normal inspection of chest Gastrointestinal (Abdomen): Inspection/Auscultation: abdomen normal to inspection and normal bowel sounds; abdomen not distended Percussion/Palpation: abdomen soft; abdomen nontender, no guarding and abdomen not rigid Musculoskeletal: no cyanosis or clubbing, extremities motor strength 5/5 Head/Neck/Chest: normocephalic and head atraumatic Skin: no rashes, warm and dry Neurologic: PERRL, EOMI, accommodation nl, no face palsy, no dysarthria moves all extremities Speech / Cognition: normal speech Motor/Sensory: no tremor Psychiatric: A+Ox3, euthymic affect Speech: normal rate/rhythm/volume of speech Genitourinary: no CVA tenderness Lymphatic: no lymphadenopathy Results & Data Results & Data ([facility]) Vital Signs (Past 12 Hours) Vital Signs Pulse Resp BP Pulse Ox 09/02/20 07:09 67 19 161/94 H 97 09/02/20 06:09 62 7 L 119/85 97 09/02/20 05:08 67 10 L 140/68 96 09/02/20 04:09 62 16 142/65 H 96 09/02/20 03:08 64 12 144/77 H 95 09/02/20 02:09 61 0 L 129/62 96 09/02/20 01:08 66 15 139/83 96 09/02/20 00:00 69 Laboratory Results 09/02/20 09/02/20 09/01/20 Range/Units 04:22 04:22 13:45 WBC 9.82 (4.8-10.8) K/uL RBC 4.58 L (4.7-6.1) M/uL Hgb 14.0 (14.0-18.0) g/dL POC Hgb (14.0-18.0) g/dl Hct 43.1 (42-52) % POC Hct (42-52) % MCV 94.1 (80-100) fL MCH 30.6 (25-34) pg MCHC 32.5 (32-36) g/dL RDW Std Deviation 45.8 (36.4-46.3) fL RDW Coeff of Christopher 13.4 (11.5-14.5) % Plt Count 298 (130-400) K/uL MPV 9.6 (7.4-10.4) fL Immature Gran % (Auto) % Neut % (Auto) % Lymph % (Auto) % Sandoval % (Auto) % Eos % (Auto) % Baso % (Auto) % Neut # (Auto) (1.4-6.5) K/uL Lymph # (Auto) (1.2-3.4) K/uL Sandoval # (Auto) (0.11-0.59) K/uL Eos # (Auto) (0-0.5) K/uL Baso # (Auto) (0-0.2) K/uL Immature Gran # (Auto) (0.00-0.02) K/uL PT (9.0-12.0) Seconds INR (0.9-1.1) APTT (21.0-31.0) Seconds PTT Ratio POC Sodium (135-144) mmol/L Sodium 142 (136-145) mmol/L POC Potassium (3.3-5.0) mmol/L Potassium 3.7 (3.5-5.1) mmol/L POC Chloride (101-112) mmol/L Chloride 108 H (98-107) mmol/L Carbon Dioxide 29 (21-32) mmol/L POC Total CO2 (24-31) mmol/L Anion Gap 5.0 (3-11) POC Anion Gap (16-25) mmol/L POC BUN (7-18) mg/dl BUN 18 (7-18) mg/dl Creatinine 1.12 (0.6-1.4) mg/dl POC Creatinine (0.6-1.3) mg/dl Est Cr Clr Drug Dosing 67.9 ml/min Est GFR ( Amer) 79.5 Est GFR (Non-Af Amer) 68.6 BUN/Creatinine Ratio 16.0 (10-20) Glucose 98 (70-99) mg/dl POC Glucose (70-99) mg/dl POC Glucose (other) (70-99) mg/dl Calcium 8.5 (8.5-10.1) mg/dl POC Ioniz Calcium Brandon (1.12-1.32) mmol/l Phosphorus 3.1 (2.5-4.9) mg/dl Magnesium 2.4 (1.8-2.4) mg/dl Total Bilirubin (0.2-1) mg/dl AST (15-37) U/L ALT (12-78) U/L Alkaline Phosphatase (45-117) U/L CK-MB (CK-2) (0.5-3.6) ng/ml Troponin I (0-0.045) ng/ml Total Protein (6.4-8.2) gm/dl Albumin (3.4-5.0) gm/dl Globulin (2.5-4.0) gm/dl Albumin/Globulin Ratio (0.9-2) Urine Color Urine Appearance (Clear) Urine pH (4.5-7.5) Ur Specific [place] (1.000-1.030) Urine Protein (Negative) Urine Glucose (UA) (Negative) Urine Ketones (Negative) Urine Blood (Negative) Urine Nitrite (Negative) Urine Bilirubin (Negative) Urine Urobilinogen (Negative) Ur Leukocyte Esterase (Negative) Nasal Screen MRSA (PCR) Negative (Negative) 09/01/20 09/01/20 09/01/20 Range/Units 12:50 09:37 09:32 WBC (4.8-10.8) K/uL RBC (4.7-6.1) M/uL Hgb (14.0-18.0) g/dL POC Hgb 15.0 (14.0-18.0) g/dl Hct (42-52) % POC Hct 44 (42-52) % MCV (80-100) fL MCH (25-34) pg MCHC (32-36) g/dL RDW Std Deviation (36.4-46.3) fL RDW Coeff of Christopher (11.5-14.5) % Plt Count (130-400) K/uL MPV (7.4-10.4) fL Immature Gran % (Auto) % Neut % (Auto) % Lymph % (Auto) % Sandoval % (Auto) % Eos % (Auto) % Baso % (Auto) % Neut # (Auto) (1.4-6.5) K/uL Lymph # (Auto) (1.2-3.4) K/uL Sandoval # (Auto) (0.11-0.59) K/uL Eos # (Auto) (0-0.5) K/uL Baso # (Auto) (0-0.2) K/uL Immature Gran # (Auto) (0.00-0.02) K/uL PT (9.0-12.0) Seconds INR (0.9-1.1) APTT (21.0-31.0) Seconds PTT Ratio POC Sodium 139 (135-144) mmol/L Sodium 138 (136-145) mmol/L POC Potassium 4.0 (3.3-5.0) mmol/L Potassium 3.9 (3.5-5.1) mmol/L POC Chloride 103 (101-112) mmol/L Chloride 107 (98-107) mmol/L Carbon Dioxide 27 (21-32) mmol/L POC Total CO2 25 (24-31) mmol/L Anion Gap 4.0 (3-11) POC Anion Gap 16.0 (16-25) mmol/L POC BUN 13 (7-18) mg/dl BUN 12 (7-18) mg/dl Creatinine 1.02 (0.6-1.4) mg/dl POC Creatinine 0.9 (0.6-1.3) mg/dl Est Cr Clr Drug Dosing 74.6 ml/min Est GFR ( Amer) 89.0 Est GFR (Non-Af Amer) 76.8 BUN/Creatinine Ratio 12.2 (10-20) Glucose 126 H (70-99) mg/dl POC Glucose (70-99) mg/dl POC Glucose (other) 124 H (70-99) mg/dl Calcium 8.3 L (8.5-10.1) mg/dl POC Ioniz Calcium Brandon 1.17 (1.12-1.32) mmol/l Phosphorus (2.5-4.9) mg/dl Magnesium 2.1 (1.8-2.4) mg/dl Total Bilirubin 0.3 (0.2-1) mg/dl AST 16 (15-37) U/L ALT 38 (12-78) U/L Alkaline Phosphatase 124 H (45-117) U/L CK-MB (CK-2) 1.6 (0.5-3.6) ng/ml Troponin I < 0.015 (0-0.045) ng/ml Total Protein 6.7 (6.4-8.2) gm/dl Albumin 3.3 L (3.4-5.0) gm/dl Globulin 3.4 (2.5-4.0) gm/dl Albumin/Globulin Ratio 1.0 (0.9-2) Urine Color Yellow Urine Appearance Clear (Clear) Urine pH 7.5 (4.5-7.5) Ur Specific [place] 1.018 (1.000-1.030) Urine Protein Negative (Negative) Urine Glucose (UA) Negative (Negative) Urine Ketones Negative (Negative) Urine Blood Negative (Negative) Urine Nitrite Negative (Negative) Urine Bilirubin Negative (Negative) Urine Urobilinogen Negative (Negative) Ur Leukocyte Esterase Negative (Negative) Nasal Screen MRSA (PCR) (Negative) 09/01/20 09/01/20 09/01/20 Range/Units 09:32 09:32 09:13 WBC 10.14 (4.8-10.8) K/uL RBC 4.74 (4.7-6.1) M/uL Hgb 14.7 (14.0-18.0) g/dL POC Hgb (14.0-18.0) g/dl Hct 43.9 (42-52) % POC Hct (42-52) % MCV 92.6 (80-100) fL MCH 31.0 (25-34) pg MCHC 33.5 (32-36) g/dL RDW Std Deviation 44.0 (36.4-46.3) fL RDW Coeff of Christopher 13.0 (11.5-14.5) % Plt Count 243 (130-400) K/uL MPV 9.6 (7.4-10.4) fL Immature Gran % (Auto) 0.3 % Neut % (Auto) 83.4 % Lymph % (Auto) 9.9 % Sandoval % (Auto) 5.0 % Eos % (Auto) 1.3 % Baso % (Auto) 0.1 % Neut # (Auto) 8.46 H (1.4-6.5) K/uL Lymph # (Auto) 1.00 L (1.2-3.4) K/uL Sandoval # (Auto) 0.51 (0.11-0.59) K/uL Eos # (Auto) 0.13 (0-0.5) K/uL Baso # (Auto) 0.01 (0-0.2) K/uL Immature Gran # (Auto) 0.03 H (0.00-0.02) K/uL PT 10.4 (9.0-12.0) Seconds INR 1.0 (0.9-1.1) APTT 24.4 (21.0-31.0) Seconds PTT Ratio 0.9 POC Sodium (135-144) mmol/L Sodium (136-145) mmol/L POC Potassium (3.3-5.0) mmol/L Potassium (3.5-5.1) mmol/L POC Chloride (101-112) mmol/L Chloride (98-107) mmol/L Carbon Dioxide (21-32) mmol/L POC Total CO2 (24-31) mmol/L Anion Gap (3-11) POC Anion Gap (16-25) mmol/L POC BUN (7-18) mg/dl BUN (7-18) mg/dl Creatinine (0.6-1.4) mg/dl POC Creatinine (0.6-1.3) mg/dl Est Cr Clr Drug Dosing ml/min Est GFR ( Amer) Est GFR (Non-Af Amer) BUN/Creatinine Ratio (10-20) Glucose (70-99) mg/dl POC Glucose 143 H (70-99) mg/dl POC Glucose (other) (70-99) mg/dl Calcium (8.5-10.1) mg/dl POC Ioniz Calcium Brandon (1.12-1.32) mmol/l Phosphorus (2.5-4.9) mg/dl Magnesium (1.8-2.4) mg/dl Total Bilirubin (0.2-1) mg/dl AST (15-37) U/L ALT (12-78) U/L Alkaline Phosphatase (45-117) U/L CK-MB (CK-2) (0.5-3.6) ng/ml Troponin I (0-0.045) ng/ml Total Protein (6.4-8.2) gm/dl Albumin (3.4-5.0) gm/dl Globulin (2.5-4.0) gm/dl Albumin/Globulin Ratio (0.9-2) Urine Color Urine Appearance (Clear) Urine pH (4.5-7.5) Ur Specific [place] (1.000-1.030) Urine Protein (Negative) Urine Glucose (UA) (Negative) Urine Ketones (Negative) Urine Blood (Negative) Urine Nitrite (Negative) Urine Bilirubin (Negative) Urine Urobilinogen (Negative) Ur Leukocyte Esterase (Negative) Nasal Screen MRSA (PCR) (Negative) Medications Administered Current Inpatient Medications Acetaminophen (Acetaminophen 325 Mg Tab) 650 mg PO Q4H PRN PRN Reason: Pain or Fever Stop: 10/01/20 12:03 Aspirin (Aspirin 81 Mg Ectab) 81 mg PO QAM [facility] Stop: 10/02/20 08:59 Last Admin: 09/02/20 08:33 Dose: 81 mg Documented by: Atorvastatin Calcium (Atorvastatin 20 Mg Tab) 20 mg PO DAILY [facility] Stop: 10/02/20 08:59 Last Admin: 09/02/20 08:33 Dose: 20 mg Documented by: Bupropion HCl (Bupropion Sr 150 Mg Tabcr) 150 mg PO BID [facility] Stop: 10/01/20 20:59 Last Admin: 09/02/20 08:33 Dose: 150 mg Documented by: Lisinopril/HCTZ (Lisinopril/Hctz 20/12.5mg 1 Tab Tab) 1 tab PO QAM [facility] Stop: 10/02/20 08:59 Last Admin: 09/02/20 08:32 Dose: 1 tab Documented by: Miscellaneous (Remove Nicoderm Patch) 1 ea N/A DAILY@[id number] [facility] Stop: 10/02/20 08:58 Last Admin: 09/02/20 08:34 Dose: Not Given Documented by: Nicotine (Nicotine 7 Mg/24 Hr Tdsy) 7 mg TD QAM [facility] Stop: 10/01/20 14:59 Last Admin: 09/02/20 08:33 Dose: Not Given Documented by: Polyethylene Glycol (Polyethylene (Miralax) 17 Gm Pack) 17 gm PO DAILY PRN PRN Reason: Constipation Stop: 10/01/20 12:03
[2020-09-02] MEDS ORDERED: ATORVASTATIN 20 MG TAB PO SCH (09:00)
[2020-09-02] MEDS ORDERED: LISINOPRIL/HCTZ 20/12.5MG 1 TAB TAB PO SCH (09:00)
[2020-09-02] MEDS ORDERED: ASPIRIN 81 MG ECTAB PO SCH (09:00)
--- NOTE | 2020-09-02 12:56 | Emergency Department Note ---
History of Present Illness General Chief complaint: Dizziness Time Seen by Provider: 09/01/20 08:43 Source: patient, EMS, RN notes reviewed and old records reviewed Mode of arrival: EMS Limitations: no limitations History of Present Illness Provider complaint: Severe dizziness Onset (ago): hour(s) less than 1 Location: head Radiation: non-radiation Severity: mild Pain Consistency: + intermittent Maximum Pain Intensity: 1 Current Pain Intensity: 1 Quality: + dull Relieved By: + immobilization Exacerbated By: + movement Associated symptoms: + denies other symptoms; no chest pain, no cough, no fever/chills, no nausea/vomiting, no shortness of breath and no weakness Treatments prior to arrival: none This 64-year-old male who presents emergency department complaining of severe dizziness. 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 The patient at this point is so dizzy he cannot open his eyes. He feels like the entire room is spinning without movement. He reports nothing makes the dizziness better except closing his eyes. He has not taken anything for the dizziness prior to arrival. He reports any movement of his head causes dizziness to become worse. Home Medications Home Medications Medication Instructions Recorded Confirmed Type atorvastatin 20 mg PO DAILY 09/01/20 09/01/20 History melatonin 3 mg PO HS PRN 09/01/20 09/01/20 History aspirin 81 mg PO QAM 30 Days #30 tab 09/02/20 Rx bupropion HCl 100 mg PO BID 30 Days #60 ea 09/02/20 Rx lisinopril-hydrochlorothiazide 1 tab PO QAM 30 Days #30 tab 09/02/20 Rx Allergies Allergy/AdvReac Type Severity Reaction Status Date / Time No Known Allergies Allergy Unverified 09/01/20 10:16 Past Med/Surg History Medical History Depression Dizziness Erectile dysfunction Hypertensive urgency Normal colonoscopy Tinnitus Tobacco use Family History Brother Diabetes Mother Cancer cervical Father Heart disease hx of [place] Social History Smoking Status: Current some day smoker Tobacco Type: Cigars Second Hand Exposure: No; Do You Dip or Chew Tobacco: No; Tobacco Cessation Education Requested by Patient: No Hx Alcohol Use: No Hx Substance Use: Yes Last Used Substance: Days (ago) Preferred Language: Trinidadian Communication Ability: Effective Nutrition Manager Required: No Beliefs That Will Affect Care: None Current Living Situation: Family Other Information That Helps Us Care for You: No Feels Safe at Home: Yes Safety Concerns: Feels Safe At This Time Assistive Devices: None Review of Systems A total of 10 systems reviewed and were otherwise negative Physical Exam VITAL SIGNS - Vital signs and nursing notes were reviewed. GENERAL - 64-year-old male appearing stated age who is in moderate distress, eyes closed due to dizziness SKIN - Without rashes. HEAD - NC/AT. EYES - PERRL with EOMI bilaterally. Sclera anicteric. horizontal nystagmus present on exam EARS - No deformities of external structures noted on gross examination bilaterally. No pain elicited with palpation of the tragus bilaterally. External auditory canals without discharge or otorrhea. Tympanic membranes pearly dc without retraction or bulging. No fluid or purulent material visualized behind the TM. Handle of malleus, umbo, cone of light, pars tensa/flaccid all easily visualized. NOSE - Midline and without cyanosis. No epistaxis or purulent drainage noted. Septum midline without deviation or septal hematoma noted. MOUTH/OROPHARYNX - Without perioral cyanosis. Buccal mucosa pink and moist and without leukoplakia. Tongue midline with equal elevation of palate bilaterally. No tonsillar hypertrophy, erythema, or exudates noted. dentition noted. NECK - Neck with FROM. Supple to palpation. lymphadenopathy noted. No nuchal rigidity. LUNGS - Chest wall symmetric without accessory muscle use, intercostals retractions, or central cyanosis. Normal vesicular breath sounds CTA B/L. No wheezes, rales, or rhonchi appreciated. CARDIAC - RRR with S1/S2. No murmur, rubs, or gallops appreciated. ABDOMEN - Abdominal contour without pulsations or visible masses. BS normoactive all four quadrants. No tenderness, palpable masses, hepatosple nomegaly, or ascites noted. EXTREMITIES - No clubbing or peripheral cyanosis. No pretibial edema present. +3/5 radial, posterior tibial, and dorsalis pedis pulses palpated throughout. +5/5 strength noted in UE/LE bilaterally. NEUROLOGIC - Cranial nerves II through XII grossly intact. Sensory intact to light touch throughout. Patellar reflexes +2/4. PSYCH - A&Ox3 and cooperates fully with examiner. Pt is very pleasant and interacts well with examiner. Course Administered Medications Acetaminophen (Acetaminophen 325 Mg Tab) 650 mg PO Q4H PRN PRN Reason: Pain or Fever Stop: 10/01/20 12:03 Last Admin: 09/02/20 09:30 Dose: 650 mg Documented by: [id number] Aspirin (Aspirin 81 Mg Ectab) 81 mg PO QAM KEITH Stop: 10/02/20 08:59 Last Admin: 09/02/20 08:33 Dose: 81 mg Documented by: [id number] Atorvastatin Calcium (Atorvastatin 20 Mg Tab) 20 mg PO DAILY KEITH Stop: 10/02/20 08:59 Last Admin: 09/02/20 08:33 Dose: 20 mg Documented by: [id number] Lisinopril/HCTZ (Lisinopril/Hctz 20/12.5mg 1 Tab Tab) 1 tab PO QAM KEITH Stop: 10/02/20 08:59 Last Admin: 09/02/20 08:32 Dose: 1 tab Documented by: [id number] Discontinued Medications Aspirin (Aspirin Chew 324 Mg) 324 mg PO NOW STA Stop: 09/01/20 09:56 Last Admin: 09/01/20 10:00 Dose: 324 mg Documented by: [id number] Bupropion HCl (Bupropion Sr 150 Mg Tabcr) 150 mg PO BID KEITH Stop: 10/01/20 20:59 Last Admin: 09/02/20 08:33 Dose: 150 mg Documented by: [id number] Admin: 09/01/20 20:35 Dose: 150 mg Documented by: [id number] Lisinopril/HCTZ (Lisinopril/Hctz 10/12.5mg Tab) 1 tab PO QAM KEITH Stop: 10/01/20 12:29 Last Admin: 09/01/20 12:57 Dose: 1 tab Documented by: [id number] Sodium Chloride (Nss 1000ml) 1,000 mls @ 999 mls/hr IV .Q1H1M ONE Stop: 09/01/20 09:58 Last Infusion: 09/01/20 10:54 Dose: 0 mls/hr Documented by: [id number] Admin: 09/01/20 09:18 Dose: 999 mls/hr Documented by: [id number] Magnesium Sulfate/Dextrose (Magnesium Sulfate / D5w) 1 gm in 100 mls @ 50 mls/hr IV NOW STA Stop: 09/01/20 11:23 Last Admin: 09/01/20 09:43 Dose: Not Given Documented by: [id number] Magnesium Sulfate/Dextrose (Magnesium Sulfate / D5w) 1 gm in 100 mls @ 100 mls/hr IV NOW STA Stop: 09/01/20 10:54 Last Admin: 09/01/20 10:01 Dose: Not Given Documented by: [id number] Nicardipine HCl 25 mg/ Sodium (Chloride) 250 mls @ 0 mls/hr IV .Q0M KEITH; Protocol Stop: 10/01/20 11:14 Last Titration: 09/02/20 08:04 Dose: 0 mg/hr, 0 mls/hr Documented by: [id number] Admin: 09/01/20 18:02 Dose: Not Given Documented by: [id number] Titration: 09/01/20 14:20 Dose: 0 mg/hr, 0 mls/hr Documented by: [id number] Titration: 09/01/20 12:59 Dose: 1.25 mg/hr, 12.5 mls/hr Documented by: [id number] Titration: 09/01/20 12:41 Dose: 2.5 mg/hr, 25 mls/hr Documented by: [id number] Admin: 09/01/20 12:00 Dose: 5 mg/hr, 50 mls/hr Documented by: [id number] Cosigned by: [id number] Ioversol (Optiray 320 125ml) 120 ml IV ONCE ONE Stop: 09/01/20 09:01 Last Admin: 09/01/20 09:01 Dose: 120 ml Documented by: [id number] Labetalol HCl (Labetalol Hcl Iv 5 Mg/Ml 20ml) Confirm Administered Dose 10 mg IV .STK-MED ONE Stop: 09/01/20 09:06 Last Admin: 09/01/20 09:49 Dose: Not Given Documented by: [id number] Labetalol HCl (Labetalol Hcl Iv 5 Mg/Ml 20ml) 10 mg IV NOW ONE Stop: 09/01/20 09:31 Last Admin: 09/01/20 09:21 Dose: 10 mg Documented by: [id number] Cosigned by: [id number] Magnesium Sulfate/Dextrose (Magnesium Sulfate 1gm / D5w Bag) Confirm Administered Dose 1 gm IV .STK-MED ONE Stop: 09/01/20 09:23 Last Admin: 09/01/20 09:43 Dose: 1 gm Documented by: [id number] Meclizine HCl (Meclizine Hcl 25 Mg Tab) 25 mg PO NOW STA Stop: 09/01/20 08:57 Last Admin: 09/01/20 09:54 Dose: 25 mg Documented by: [id number] Miscellaneous (Remove Nicoderm Patch) 1 ea N/A DAILY@0859 KEITH Stop: 10/02/20 08:58 Last Admin: 09/02/20 08:34 Dose: Not Given Documented by: [id number] Nicotine (Nicotine 7 Mg/24 Hr Tdsy) 7 mg TD QAM KEITH Stop: 10/01/20 14:59 Last Admin: 09/02/20 08:33 Dose: Not Given Documented by: [id number] Admin: 09/01/20 16:10 Dose: Not Given Documented by: [id number] Ondansetron HCl (Ondansetron Inj 2 Mg/Ml 2 Ml Vial) 4 mg IV NOW STA Stop: 09/01/20 08:57 Last Admin: 09/01/20 09:20 Dose: 4 mg Documented by: [id number] Potassium Chloride (Potassium Chloride 20 Meq Tabcr) 40 meq PO NOW STA Stop: 09/02/20 05:49 Last Admin: 09/02/20 06:32 Dose: 40 meq Documented by: [id number] Critical Care Time I have personally spent greater than 30 minutes of critical care time in the direct management of this patient. This includes bedside care, interpretation of diagnostic studies, and testing, discussion with consultants, patient, and family members, and other required patient management activities. This 30 minutes is in excess of all separately billable procedures. Medical Decision Making Differential Diagnosis Infection, dehydration, metabolic abnormality, hypo/hyperglycemia, electrolyte disturbance, anemia, hypoxia, cardiac sources, intracerebral event, toxicologic, neurologic, as well as other pathologies. Medical Records Attestation: I reviewed the patient's medical records. Home Medications Current Medication List: was personally reviewed by me Laboratory Data Attestation: I reviewed the patient's lab results. Result diagrams: 09/02/20 04:22 09/02/20 04:22 Lab Results 09/01/20 09/01/20 09/01/20 Range/Units 09:13 09:32 09:32 WBC 10.14 (4.8-10.8) K/uL RBC 4.74 (4.7-6.1) M/uL Hgb 14.7 (14.0-18.0) g/dL POC Hgb (14.0-18.0) g/dl Hct 43.9 (42-52) % POC Hct (42-52) % MCV 92.6 (80-100) fL MCH 31.0 (25-34) pg MCHC 33.5 (32-36) g/dL RDW Std Deviation 44.0 (36.4-46.3) fL RDW Coeff of Christopher 13.0 (11.5-14.5) % Plt Count 243 (130-400) K/uL MPV 9.6 (7.4-10.4) fL Immature Gran % (Auto) 0.3 % Neut % (Auto) 83.4 % Lymph % (Auto) 9.9 % [place] % (Auto) 5.0 % Eos % (Auto) 1.3 % Baso % (Auto) 0.1 % Neut # (Auto) 8.46 H (1.4-6.5) K/uL Lymph # (Auto) 1.00 L (1.2-3.4) K/uL [place] # (Auto) 0.51 (0.11-0.59) K/uL Eos # (Auto) 0.13 (0-0.5) K/uL Baso # (Auto) 0.01 (0-0.2) K/uL Immature Gran # (Auto) 0.03 H (0.00-0.02) K/uL PT 10.4 (9.0-12.0) Seconds INR 1.0 (0.9-1.1) APTT 24.4 (21.0-31.0) Seconds PTT Ratio 0.9 POC Sodium (135-144) mmol/L Sodium (136-145) mmol/L POC Potassium (3.3-5.0) mmol/L Potassium (3.5-5.1) mmol/L POC Chloride (101-112) mmol/L Chloride (98-107) mmol/L Carbon Dioxide (21-32) mmol/L POC Total CO2 (24-31) mmol/L Anion Gap (3-11) POC Anion Gap (16-25) mmol/L POC BUN (7-18) mg/dl BUN (7-18) mg/dl Creatinine (0.6-1.4) mg/dl POC Creatinine (0.6-1.3) mg/dl Est Cr Clr Drug Dosing ml/min Est GFR ( Amer) Est GFR (Non-Af Amer) BUN/Creatinine Ratio (10-20) Glucose (70-99) mg/dl POC Glucose 143 H (70-99) mg/dl POC Glucose (other) (70-99) mg/dl Calcium (8.5-10.1) mg/dl POC Ioniz Calcium Brandon (1.12-1.32) mmol/l Magnesium (1.8-2.4) mg/dl Total Bilirubin (0.2-1) mg/dl AST (15-37) U/L ALT (12-78) U/L Alkaline Phosphatase (45-117) U/L CK-MB (CK-2) (0.5-3.6) ng/ml Troponin I (0-0.045) ng/ml Total Protein (6.4-8.2) gm/dl Albumin (3.4-5.0) gm/dl Globulin (2.5-4.0) gm/dl Albumin/Globulin Ratio (0.9-2) 09/01/20 09/01/20 Range/Units 09:32 09:37 WBC (4.8-10.8) K/uL RBC (4.7-6.1) M/uL Hgb (14.0-18.0) g/dL POC Hgb 15.0 (14.0-18.0) g/dl Hct (42-52) % POC Hct 44 (42-52) % MCV (80-100) fL MCH (25-34) pg MCHC (32-36) g/dL RDW Std Deviation (36.4-46.3) fL RDW Coeff of Christopher (11.5-14.5) % Plt Count (130-400) K/uL MPV (7.4-10.4) fL Immature Gran % (Auto) % Neut % (Auto) % Lymph % (Auto) % [place] % (Auto) % Eos % (Auto) % Baso % (Auto) % Neut # (Auto) (1.4-6.5) K/uL Lymph # (Auto) (1.2-3.4) K/uL [place] # (Auto) (0.11-0.59) K/uL Eos # (Auto) (0-0.5) K/uL Baso # (Auto) (0-0.2) K/uL Immature Gran # (Auto) (0.00-0.02) K/uL PT (9.0-12.0) Seconds INR (0.9-1.1) APTT (21.0-31.0) Seconds PTT Ratio POC Sodium 139 (135-144) mmol/L Sodium 138 (136-145) mmol/L POC Potassium 4.0 (3.3-5.0) mmol/L Potassium 3.9 (3.5-5.1) mmol/L POC Chloride 103 (101-112) mmol/L Chloride 107 (98-107) mmol/L Carbon Dioxide 27 (21-32) mmol/L POC Total CO2 25 (24-31) mmol/L Anion Gap 4.0 (3-11) POC Anion Gap 16.0 (16-25) mmol/L POC BUN 13 (7-18) mg/dl BUN 12 (7-18) mg/dl Creatinine 1.02 (0.6-1.4) mg/dl POC Creatinine 0.9 (0.6-1.3) mg/dl Est Cr Clr Drug Dosing 74.6 ml/min Est GFR ( Amer) 89.0 Est GFR (Non-Af Amer) 76.8 BUN/Creatinine Ratio 12.2 (10-20) Glucose 126 H (70-99) mg/dl POC Glucose (70-99) mg/dl POC Glucose (other) 124 H (70-99) mg/dl Calcium 8.3 L (8.5-10.1) mg/dl POC Ioniz Calcium Brandon 1.17 (1.12-1.32) mmol/l Magnesium 2.1 (1.8-2.4) mg/dl Total Bilirubin 0.3 (0.2-1) mg/dl AST 16 (15-37) U/L ALT 38 (12-78) U/L Alkaline Phosphatase 124 H (45-117) U/L CK-MB (CK-2) 1.6 (0.5-3.6) ng/ml Troponin I < 0.015 (0-0.045) ng/ml Total Protein 6.7 (6.4-8.2) gm/dl Albumin 3.3 L (3.4-5.0) gm/dl Globulin 3.4 (2.5-4.0) gm/dl Albumin/Globulin Ratio 1.0 (0.9-2) Imaging Data Radiologist's Impression: [place] [phone] XRay Report Patient: DEVON UGIDRYAdmit Date: 09/01/20 MR#: [id number]: [address] [facility] Acct ID:[id number]: Date: [address] [place] [address] Zip: [place] [address] Age: 64Location: ED Sex: MRoom/Bed: Att Phy:Diagnosis: DIZZINESS Emily Phy: Jesus Neil, LILIANEervice Date: 09/01/20 Fam Phy:Interpreting Phy: Darren Tejada MD Admit Phy: Ordering Phy: Donta Sarkar MD cc: ~ SINGLE VIEW CHEST CLINICAL HISTORY: Dizziness. FINDINGS: An AP, portable, upright chest radiograph is obtained. No prior studies are available for comparison at the time of dictation. The heart is top normal for projection. The pulmonary vasculature is noncongested. The lungs and pleural spaces are clear. No pneumothorax is seen. The bony thorax is grossly intact. IMPRESSION: No active disease in the chest. ACT 112: Negative or not required by law. Electronically signed by: Darren Tejada M.D. 09/01/2020 10:05 AM Dictated: 09/01/20 1004 Transcribed: 09/01/20 1004 [place], [place] [phone] CT Scan Report Patient: DEVON GUIDRYAdmit Date: 09/01/20 MR#: [id number]: [address] [facility] Acct ID:[id number]: Date: [address] [place] [address] Zip: [place] [address] Age: 64Location: ED Sex: MRoom/Bed: Att Phy:Diagnosis: DIZZINESS Emily Phy: Jesus Neil, MDService Date: 09/01/20 [facility] Phy:Interpreting Phy: Darren Tejada MD Admit Phy: Ordering Phy: Donta Sarkar MD cc: ~ UNENHANCED CT OF THE BRAIN; CT ANGIOGRAM OF THE BRAIN; CT ANGIOGRAM OF THE NECK CLINICAL HISTORY: Strokelike symptoms. COMPARISON STUDY: No priors. TECHNIQUE: Unenhanced axial CT scan of the brain is performed. Subsequently, following the IV administration of 120 of Optiray 320, CT angiogram of the head and neck was performed from the aortic arch to the vertex. Images are reviewed in the axial, sagittal, and coronal planes. 3-D MIPS images are created and assessed. IV contrast was administered without complication. All measurements were calculated based on NASCET criteria. A dose lowering technique was utilized adhering to the principles of ALARA. CT DOSE: 1238.98 mGy.cm FINDINGS: Brain parenchyma: There is age-related involutional change noting mild subcortical and periventricular microangiopathic disease. There is no hemorrhage, mass effect, or evidence of acute territorial ischemia by CT criteria. There is no evidence of enhancing mass lesion on the angiogram phase images. The ventricles, sulci, and cisterns are prominent secondary to involutional change. Dc-white matter differentiation is preserved. Mineralization is noted in the basal ganglia. No extra-axial fluid collection is seen. Thoracic aorta: Visualized portions of the thoracic aorta are normal in caliber. The aortic arch demonstrates bovine variant anatomy. Right carotid arterial system: The right common carotid artery is widely patent, as are the right internal and external carotid arteries. Left carotid arterial system: The left common carotid artery is widely patent, as are the left internal and external carotid arteries. Calcified plaque is no barrie in the carotid bulb. There is tortuosity of the distal internal carotid artery. Vertebral arteries: The vertebral arteries are widely patent and codominant. Subclavian arteries: Widely patent bilaterally. Intracranial vasculature: There is atherosclerotic calcification of the cavernous carotid arteries. There is origin of the left posterior cerebral artery. A small posterior to indicating artery is seen on the right. The internal carotid arteries are patent at the skull base, as are the anterior and middle cerebral arteries bilaterally. The vertebrobasilar system and posterior cerebral arteries are widely patent. The vertebral arteries are codominant. There is no aneurysm, high-grade stenosis, or focal vessel cut off seen throughout the intracranial circulation. Jugular veins: Patent bilaterally. Dural sinuses: Patent. Lung apices: Partially visualized upper lobe lung parenchyma appears clear. Soft tissues: The visualized pharyngeal soft tissues are normal in appearance noting angiographic phase technique. The oropharyngeal airway appears widely patent. The salivary and thyroid glands are normal in appearance. No cervical lymphadenopathy is seen. Skeletal structures: The calvarium appears intact. The cervical spine is within normal limits. No lytic or blastic lesion is seen. Orbits: The bony orbits are intact. Orbital contents are normal as imaged. Sinuses and mastoids: There is mild mucosal thickening in the right frontal sinus. A 10 mm retention cyst is seen in the right maxillary sinus. Trace mucosal thickening is noted in the left maxillary sinus. The mastoid air cells are well pneumatized. IMPRESSION: 1. There is no hemorrhage, mass effect, or evidence of acute territorial ischemia by CT criteria. 2. Unremarkable CT angiogram of the brain. 3. Unremarkable CT angiogram of the neck. ACT 112: Negative or not required by law. Electronically signed by: Darren Tejada M.D. 09/01/2020 9:33 AM Dictated: 09/01/20923 Transcribed: 09/01/20923 [place], [place] [phone] CT Scan Report Patient: DEVON GUIDRYAdmit Date: 09/01/20 MR#: [id number]: [address] [place] [address] Acct ID:[id number]: Date: [address] [place] [address] Zip: [place] [address] Age: 64Location: ED Sex: MRoom/Bed: Att Phy:Diagnosis: DIZZINESS Emily Phy: Jesus Neil MDService Date: 09/01/20 [facility] Phy:Interpreting Phy: Darren Tejada MD Admit Phy: Ordering Phy: Donta Sarkar MD cc: ~ UNENHANCED CT OF THE BRAIN; CT ANGIOGRAM OF THE BRAIN; CT ANGIOGRAM OF THE NECK CLINICAL HISTORY: Strokelike symptoms. COMPARISON STUDY: No priors. TECHNIQUE: Unenhanced axial CT scan of the brain is performed. Subsequently, following the IV administration of 120 of Optiray 320, CT angiogram of the head and neck was performed from the aortic arch to the vertex. Images are reviewed in the axial, sagittal, and coronal planes. 3-D MIPS images are created and assessed. IV contrast was administered without complication. All measurements were calculated based on NASCET criteria. A dose lowering technique was utilized adhering to the principles of ALARA. CT DOSE: 1238.98 mGy.cm FINDINGS: Brain parenchyma: There is age-related involutional change noting mild subcortical and periventricular microangiopathic disease. There is no hemorrhage, mass effect, or evidence of acute territorial ischemia by CT cr iteria. There is no evidence of enhancing mass lesion on the angiogram phase images. The ventricles, sulci, and cisterns are prominent secondary to involutional change. Dc-white matter differentiation is preserved. Mineralization is noted in the basal ganglia. No extra-axial fluid collection is seen. Thoracic aorta: Visualized portions of the thoracic aorta are normal in caliber. The aortic arch demonstrates bovine variant anatomy. Right carotid arterial system: The right common carotid artery is widely patent, as are the right internal and external carotid arteries. Left carotid arterial system: The left common carotid artery is widely patent, as are the left internal and external carotid arteries. Calcified plaque is noted in the carotid bulb. There is tortuosity of the distal internal carotid artery. Vertebral arteries: The vertebral arteries are widely patent and codominant. Subclavian arteries: Widely patent bilaterally. Intracranial vasculature: There is atherosclerotic calcification of the cavernous carotid arteries. There is origin of the left posterior cerebral artery. A small posterior to indicating artery is seen on the right. The internal carotid arteries are patent at the skull base, as are the anterior and middle cerebral arteries bilaterally. The vertebrobasilar system and posterior cerebral arteries are widely patent. The vertebral arteries are codominant. There is no aneurysm, high-grade stenosis, or focal vessel cut off seen throughout the intracranial circulation. Jugular veins: Patent bilaterally. Dural sinuses: Patent. Lung apices: Partially visualized upper lobe lung parenchyma appears clear. Soft tissues: The visualized pharyngeal soft tissues are normal in appearance noting angiographic phase technique. The oropharyngeal airway appears widely patent. The salivary and thyroid glands are normal in appearance. No cervical lymphadenopathy is seen. Skeletal structures: The calvarium appears intact. The cervical spine is within normal limits. No lytic or blastic lesion is seen. Orbits: The bony orbits are intact. Orbital contents are normal as imaged. Sinuses and mastoids: There is mild mucosal thickening in the right frontal sinus. A 10 mm retention cyst is seen in the right maxillary sinus. Trace mucosal thickening is noted in the left maxillary sinus. The mastoid air cells are well pneumatized. IMPRESSION: 1. There is no hemorrhage, mass effect, or evidence of acute territorial ischemia by CT criteria. 2. Unremarkable CT angiogram of the brain. 3. Unremarkable CT angiogram of the neck. ACT 112: Negative or not required by law. Electronically signed by: Darren Tejada M.D. 09/01/2020 9:33 AM Dictated: 09/01/20923 Transcribed: 09/01/20923 [place], [place] [phone] CT Scan Report Patient: DEVON GUIDRYAdmit Date: 09/01/20 MR#: [id number]: [address] [facility] Acct ID:[id number]: Date: [address] [place] [address] Zip: [place] [address] Age: 64Location: ED Sex: MRoom/Bed: Att Phy:Diagnosis: DIZZINESS Emily Phy: Jesus Neil, MDService Date: 09/01/20 Fam Phy:Interpreting Phy: Darren Tejada MD Admit Phy: Ordering Phy: Donta Sarkar MD cc: ~ UNENHANCED CT OF THE BRAIN; CT ANGIOGRAM OF THE BRAIN; CT ANGIOGRAM OF THE NECK CLINICAL HISTORY: Strokelike symptoms. COMPARISON STUDY: No priors. TECHNIQUE: Unenhanced axial CT scan of the brain is performed. Subsequently, following the IV administration of 120 of Optiray 320, CT angiogram of the head and neck was performed from the aortic arch to the vertex. Images are reviewed in the axial, sagittal, and coronal planes. 3-D MIPS images are created and assessed. IV contrast was administered without complication. All measurements were calculated based on NASCET criteria. A dose lowering technique was utilized adhering to the principles of ALARA. CT DOSE: 1238.98 mGy.cm FINDINGS: Brain parenchyma: There is age-related involutional change noting mild subcortical and periventricular microangiopathic disease. There is no hemorrhage, mass effect, or evidence of acute territorial ischemia by CT criteria. There is no evidence of enhancing mass lesion on the angiogram phase images. The ventricles, sulci, and cisterns are prominent secondary to involutional change. Dc-white matter differentiation is preserved. Mineralization is noted in the basal ganglia. No extra-axial fluid collection is seen. Thoracic aorta: Visualized portions of the thoracic aorta are normal in caliber. The aortic arch demonstrates bovine variant anatomy. Right carotid arterial system: The right common carotid artery is widely patent, as are the right internal and external carotid arteries. Left carotid arterial system: The left common carotid artery is widely patent, as are the left internal and external carotid arteries. Calcified plaque is noted in the carotid bulb. There is tortuosity of the distal internal carotid artery. Vertebral arteries: The vertebral arteries are widely patent and codominant. Subclavian arteries: Widely patent bilaterally. Intracranial vasculature: There is atherosclerotic calcification of the cavernous carotid arteries. There is origin of the left posterior cerebral artery. A small posterior to indicating artery is seen on the right. The internal carotid arteries are patent at the skull base, as are the anterior and middle cerebral arteries bilaterally. The vertebrobasilar system and posterior cerebral arteries are widely patent. The vertebral arteries are codominant. There is no aneurysm, high-grade stenosis, or focal vessel cut off seen throughout the intracranial circulation. Jugular veins: Patent bilaterally. Dural sinuses: Patent. Lung apices: Partially visualized upper lobe lung parenchyma appears clear. Soft tissues: The visualized pharyngeal soft tissues are normal in appearance noting angiographic phase technique. The oropharyngeal airway appears widely patent. The salivary and thyroid glands are normal in appearance. No cervical lymphadenopathy is seen. Skeletal structures: The calvarium appears intact. The cervical spine is within normal limits. No lytic or blastic lesion is seen. Orbits: The bony orbits are intact. Orbital contents are normal as imaged. Sinuses and mastoids: There is mild mucosal thickening in the right frontal sinus. A 10 mm retention cyst is seen in the right maxillary sinus. Trace mucosal thickening is noted in the left maxillary sinus. The mastoid air cells are well pneumatized. IMPRESSION: 1. There is no hemorrhage, mass effect, or evidence of acute territorial ischemia by CT criteria. 2. Unremarkable CT angiogram of the brain. 3. Unremarkable CT angiogram of the neck. ACT 112: Negative or not required by law. Electronically signed by: Darren Tejada M.D. 09/01/2020 9:33 AM Dictated: 09/01/20923 Transcribed: 09/01/20923 [place], [place] [phone] Magnetic Resonance Report Patient: DEVON GUIDRYAdmit Date: 09/01/20 MR#: [id number]: [address] [facility] Acct ID:[id number]: [facility] Zip: [place] [address] Age: 64Location: ED Sex: MRoom/Bed: Att Phy:Diagnosis: DIZZINESS Emily Phy: Jesus Neil MDService Date: 09/01/20 Fam Phy:Interpreting Phy: Isiah Valdez Admit Phy: Ordering Phy: Donta Sarkar MD cc: ~ MR brain wo con HISTORY: 64 years-old Male Pt c/o severe dizziness acute dizziness. COMPARISON: Head CT, CTA head neck of same day TECHNIQUE: Multiplanar multisequence MRI of the brain was obtained without the use of IV contrast. FINDINGS: No restricted diffusion to suggest acute or subacute infarct. Midline structures including the corpus callosum, brainstem, optic chiasm, pituitary and pineal glands appear unremarkable the sagittal T1 series. There is no cerebellar tonsillar herniation. Degenerative changes of the imaged cervical spine. Mild age-related involutional changes. Mild to moderate patchy T2/FLAIR hyperint ensities throughout the white matter of the cerebral hemispheres. No acute intracranial hemorrhage, midline shift, abnormal extra axial collection, hydrocephalus or intracranial mass. The cerebral venous sinuses and major arterial flow voids at the level of the skull base appear patent. Mild polypoid mucosal thickening of the right maxillary sinus. Skull, orbits and soft tissues are unremarkable. IMPRESSION: 1. No acute intracranial abnormality, specifically there is no evidence of acute or subacute infarct. 2. Age-related involutional changes with mild to moderate chronic microvascular ischemic disease. ACT 112: Negative or not required by law. The above report was generated using voice recognition software. It may contain grammatical, syntax or spelling errors. Electronically signed by: Rodrigo Valdez M.D. 09/01/2020 10:43 AM Dictated: 09/01/201038 Transcribed: 09/01/201038 ECG Data Attestation: I personally reviewed and interpreted this ECG as follows: Indication: + other (dizziness) Rate (beats per minute): 64 Rhythm: + normal sinus ECG Intervals/blocks: + Normal QT-c (443) ECG Daniels: + Normal ECG ST segments: no ST depression and no ST elevation Comparison ECG Date: no prior available Blood Pressure Blood Pressure Findings: Elevated blood pressure Blood Pressure Disposition: further management by hospitalist MDM Narrative This is a 64-year-old male who presents the emergency department severely dizzy. The patient cannot even open his eyes due to the dizziness. He appears to have nystagmus on physical examination therefore the stroke work-up was immediately initiated. The patient was sent for CAT scan of his head and neck. This did not show any acute process. In the meanwhile the patient was started on magnesium and given IV Lopressor to bring his blood pressure down. He was then placed on a nicardipine drip because his blood pressure was so high. He was evaluated by the stroke neurologist and not felt to be a TPA candidate. The patient was then sent for an MRI and discussed with the hospitalist service who did agree to admit the patient. Patient was seen and evaluated as above in room A2. Review was performed of nursing notes and vital signs. I did review pertinent previous visits and patient history. After obtaining a thorough history and physical examination the above work up was performed. An order was placed for continuous cardiac monitoring. The monitor shows a rate of 70 with Normal SInus rhythm. The patient was evaluated during the global COVID-19 pandemic, and that diagnosis was suspected/considered upon their initial presentation. Their evaluation, treatment and testing was consistent with current guidelines for patients who present with complaints or symptoms that may be related to COVID- 19. Impression & Plan Dizziness, Hypertensive urgency Discharge Plan Visit Data Chief Complaint: Dizziness ED Provider: Donta Sarkar ED Midlevel Provider: Laila Hernandez Discharge Problem: Dizziness, Hypertensive urgency Patient Disposition: Admitted As Inpatient Discharge Instructions Interventions: ED Discharge Assessment Last Done: 09/01/20 13:17
--- NOTE | 2020-09-02 13:40 | Discharge Summary ---
Date of Service September 02, 2020 Admission HPI Per Admitting Provider Patient is a 64-year-old male, with history of hypertension, hyperlipidemia, erectile dysfunction, depression, who presents today due to dizziness. Patient states that he was at work, moving boxes which were quite heavy, working currently at [employer], and became very dizzy. He went to men's room, and felt very nauseous, dry heaving. He then presented to emergency room for further evaluation. Emergency room EKG showed normal sinus rhythm. He also received 10 mg of labetalol IV. He also received aspirin 324 mg. Chest x-ray was unremarkable, CT head was obtained and was negative. CTA head and neck unremarkable. MRI was also obtained to rule out stroke or any other intracranial abnormality, and did not show any acute intracranial abnormality, specifically no evidence of acute or subacute infarct. It did show age-related mild to moderate chronic microvascular ischemic disease. Blood pressure continued to be elevated, 197/100, patient was started on nicardipine drip in the ED. Pt otherwise denies any fevers, chills, chest pain, shortness of breath, currently denies any abdominal pain as he does not feel nauseous anymore. He still feels dizzy though. Denies any sick contacts, any new rash or swelling. Pt denies any diarrhea, however he states that his urination is more frequent. He smokes small cigars a day, and only rarely drinks alcohol. He reports marijuana use/smoking daily. In the past, he was on lisinopril/HCTZ 08/22.5. He then stopped his medications and went to see his primary care doctor. At that time his blood pressure was at goal and therefore it was decided not to start him on any blood pressure medications. Admission Exam Per Admitting Provider Physical Exam: Elderly male, lying in bed, in no acute distress Constitutional: WD/WN, vitals as above Eyes: PERRL, conjunctivae normal, anicteric sclerae EOM intact bilaterally ENMT: external ear and nose normal, oropharynx normal Neck: trachea midline, no thyromegaly Respiratory: normal respiratory effort, lungs clear to auscultation Auscultation: no crackles, no rhonchi and no wheezes Cardiovascular: RRR, no murmur, no edema Chest (Breasts): Chest: normal inspection of chest Gastrointestinal (Abdomen): Inspection/Auscultation: abdomen normal to inspection and normal bowel sounds; abdomen not distended Percussion/Palpation: abdomen soft; abdomen nontender, no guarding and abdomen not rigid Musculoskeletal: no cyanosis or clubbing, extremities motor strength 5/5 Head/Neck/Chest: normocephalic and head atraumatic Skin: no rashes, warm and dry Neurologic: PERRL, EOMI, accommodation nl, no face palsy, no dysarthria moves all extremities Speech / Cognition: normal speech Motor/Sensory: no tremor Psychiatric: A+Ox3, euthymic affect Speech: normal rate/rhythm/volume of speech Genitourinary: no CVA tenderness Lymphatic: no lymphadenopathy Principal Diagnosis Hypertensive urgency Dizziness, nausea vomiting Discharge Exam Constitutional WD/WN, vitals as above Eyes PERRL, conjunctivae normal, anicteric sclerae EOM intact bilaterally ENMT external ear and nose normal, oropharynx normal Neck trachea midline, no thyromegaly Respiratory normal respiratory effort, lungs clear to auscultation Auscultation: no crackles, no rhonchi and no wheezes Cardiovascular RRR, no murmur, no edema Chest (Breasts) Chest: normal inspection of chest Gastrointestinal (Abdomen) Inspection/Auscultation: abdomen normal to inspection and normal bowel sounds; abdomen not distended Percussion/Palpation: abdomen soft; abdomen nontender, no guarding and abdomen not rigid Musculoskeletal no cyanosis or clubbing, extremities motor strength 5/5 Head/Neck/Chest: normocephalic and head atraumatic Skin no rashes, warm and dry Neurologic PERRL, EOMI, accommodation nl, no face palsy, no dysarthria moves all extremities Speech / Cognition: normal speech Motor/Sensory: no tremor Psychiatric A+Ox3, euthymic affect Speech: normal rate/rhythm/volume of speech Genitourinary no CVA tenderness Lymphatic no lymphadenopathy Discharge Data Allergies Allergy/AdvReac Type Severity Reaction Status Date / Time No Known Allergies Allergy Unverified 09/01/20 10:16 Consultations 09/01/20 10:18 ED Decision to Admit Stat 09/01/20 12:04 Consult Sales And Marketing Professional Routine Ordered Studies 09/01/20 08:52 CT angio head w con Stat CT angio neck with con Stat CT head/brain wo con Stat IMPRESSION: 1. There is no hemorrhage, mass effect, or evidence of acute territorial ischemia by CT criteria. 2. Unremarkable CT angiogram of the brain. 3. Unremarkable CT angiogram of the neck. 09/01/20 09:16 MR brain wo con Stat IMPRESSION: 1. No acute intracranial abnormality, specifically there is no evidence of acute or subacute infarct. 2. Age-related involutional changes with mild to moderate chronic microvascular ischemic disease. Echocardiogram September 01, 2020 Left ventricle is normal in size. Left ventricular systolic function is normal. EF 55 to 60%. Left ventricular wall motion is normal. There is mild concentric left ventricular hypertrophy. Grade 1 diastolic dysfunction. There is mild mitral regurgitation. There is mild tricuspid regurgitation. Right ventricular systolic pressure is normal. Hospital Course (1) Hypertension: Hypertensive urgency history of hypertension currently, blood pressure BP quite elevated, patient symptomatic, dizzy, previously also nauseous and dry heaving Received labetalol 10 mg IV in the ED without much improvement Patient started on nicardipine drip after blood pressure 197/100 CT head negative, CTA head and neck unremarkable, MRI does not show any acute intracranial abnormality, specifically there is no evidence of acute or subacute infarct. Age-related mild to moderate chronic microvascular ischemic disease. In the past patient was on lisinopril/HCTZ, , patient stopped medication on his own, then followed up with his PCP and his blood pressure was at goal therefore blood pressure medication was not restarted, currently not on any blood pressure medications Started on oral lisinopril/HCTZ Patient on nicardipine drip from ED, needed to be monitored in ICU for titration Patient received aspirin 324 mg in the ED, will continue aspirin 81 mg daily (pt was previously on aspirin, says that he stopped it sometime ago) Echocardiogram ordered, patient should be monitored on telemetry in case there is other cause for his dizziness Telemetry reviewed overnight, patient has been in normal sinus rhythm, echocardiogram unremarkable This morning, September 02, patient feels much better, he is inquiring about going home, denies any dizziness Blood pressure much better controlled now Patient will be discharged on lisinopril/HCTZ, Pt also reported history of tinnitus, may need further outpatient evaluation by ENT, possible Menier's dis. Follow-up with PCP requested Patient also reported urinary frequency, this could be age-related BPH, but there is also possibility of UTI Will obtain UA urine culture, UA negative Denies any fevers or chills, WBC not elevated (2) Hyperlipidemia: Continue home lipitor (3) Depression: Continue home Wellbutrin (4) Tobacco use: Counseled about tobacco use cessation Currently smokes about 1 small cigar a day, he also reports daily marijuana smoking Nicotine patch ordered Total Time Total Time Spent Total Time Spent (In Minutes): 40 Total Time Includes: Examination of the Patient, Discharge Planning, Medication Reconciliation and Communication With Other Providers Discharge Plan Discharge Items Patient Disposition: Home - Self-Care Reason For Visit: HTN URGENCY Discharge Diagnosis: Hypertensive urgency Dizziness, nausea vomiting Activity: Per Instructions section Non-emergency contact: Primary Care Provider Call non-emergency contact if: you have any medication questions and your symptoms worsen Follow-up/Referrals: Jesus Neil MD [Primary Care Provider] - (Date & Time 09/08/2020 10:20 AM Provider Jesus Neil MD [facility] ) Diet: Heart Healthy Addtl Attending Provider Instructions: Follow-up with your primary care provider. The appointment was scheduled for you for September 08, 2020. There is a new medication to control your blood pressure, lisinopril and HCTZ. The prescription for this medication was sent to your pharmacy. It was recommended that your bupropion dose was decreased to 100 mg twice a day. The prescription for the new dose of the medication was also sent to your pharmacy. It is recommended that you take aspirin daily. If you can, monitor your blood pressure at home daily and write down the numbers. Have your primary care doctor review these numbers at your next appointment. Pending Studies at Discharge: No Stand-Alone Forms: My [facility], Smoking Cessation Medications and DC Order Prescriptions: New lisinopril-hydrochlorothiazide 20-12.5 mg Tablet 1 tab PO QAM 30 Days Qty: 30 RF: 0 bupropion HCl 100 mg Tablet Sustained-Release 12 Hr 100 mg PO BID 30 Days Qty: 60 RF: 0 aspirin 81 mg Tablet,Delayed Release (Dr/Ec) 81 mg PO QAM 30 Days Qty: 30 RF: 0 Continued atorvastatin 20 mg tablet 20 mg PO DAILY RF: 0 melatonin 3 mg Tablet 3 mg PO HS PRN (Reason: Insomnia) RF: 0 Discontinued bupropion HCl 150 mg tablet sustained-release 12 hr 150 mg PO BID RF: 0 Discharge Orders: Discharge Order (Routine); Ordered 09/02/20 Ordered By: Bobby Zamora Admission Data Admit Date/Time: 09/01/20 12:04 Attending Provider: Bobby Zamora Admit Provider: Bobby Zamora Primary Care Provider: Jesus Neil Other Providers: Juan Bravo ; Shakeel Moya Other Interventions: Discharge Summary Assessment (RN) Last Done: 09/02/20 13:37
[2020-09-02] MEDS ORDERED: buPROPion SR 100 MG TABCR PO SCH (21:00)
== END 2020-09-02 14:48 | disposition home or self-care (01) | DRG 305 ==
LOC: ED 08:40 → 1E 12:04